=== PATIENT | female | born 2005 | race Caucasian/White ===

== ENCOUNTER 2025-03-25 16:53 | Emergency (ER) | payer OTHER ==
[2025-03-25 16:56] VITALS: BP 109/70; PULSE 74; RESP 16; O2SAT 98
--- NOTE | 2025-03-25 17:35 | Physician Documentation ---
History of Present Illness ~ General Chief Complaint: General Stated Complaint: NUMBNESS IN MY HAND AND TONGUE Time Seen by MD: 17:13 History of Present Illness Initial Comments This 20-year-old female with no significant medical history presents to the ED with a complaint of upper extremity distal tingling and numbness along with tongue numbness for about 2 hours after being in cold water today. States that her symptoms have fully resolved an adds that she has had a spell like this before States she does not smoke cigarettes but does take an IUD which excrete hormones Otherwise she is a low risk patient has no medical history that is significant for stroke however she does have a history of anxiety. States she does not think that is what was happening today. She says she felt, calm at the time. Review of Systems All Other Systems at this time: Reviewed and Negative ROS As stated above in the HPI, otherwise all systems are reviewed and negative. Physical Exam Physical Exam Vital Signs: Temperature: 98.2, Source: Temporal, Heart Rate: 74, Respiratory Rate: 16, BP: 109/70, Pulse Oximetry: 98 Oxygen Flow Rate: 0 Physical Exam General: Alert, no apparent distress. Respiratory: Lungs clear, no respiratory distress. Neurologic: Oriented x4. Psychiatric: Normal mood and affect. Skin: Normal color, warm and dry. No edema, no ecchymosis. Progress Results/Orders Results/Orders Vital Signs 03/25/25 16:56 Temp 98.2 Pulse 74 Resp 16 B/P (MAP) 109/70 Pulse Ox 98 O2 Flow Rate 0 Medical Decision Making Findings Explained that this patient does not present with any acute findings that would indicate further imaging to rule out CVA. Patient presents as a very healthy young woman without any focal deficits signs of focal deficits or any transient symptoms. Explained that this spell maybe directly correlated with the a panic attack or anxiety. She was visibly upset with the these findings. However I feel strongly there is a large psychiatric element to her presentation. Departure Disposition: 01 HOME / SELF CARE / HOMELESS Impression: Primary Impression: General medical exam Additional Impression: Panic attack Condition: Stable Discharge Instructions: Panic Attack, [id number] Additional Instructions: Discussed you do not present with any signs that you have her had a stroke. Recommend following up with the primary care doctor for further evaluation if you continue to have these spells of upper extremity numbness and tingling along with numbness in your tongue Referrals: NO PRIMARY CARE PROVIDER (PCP) Education Educated: Patient Signature Scribe Signature: d Attestation: The note accurately reflects work and decisions made by me.Tavo Fernández NP 03/25/25 17:30 TAVO NEAL NP Mar 25, 2025 17:35
[2025-03-25 17:50] VITALS: TEMP 98.2
== END 2025-03-25 17:51 | disposition home or self-care (01) ==
LOC: ER 16:54
DX: F41.0 Panic disorder [episodic paroxysmal anxiety] (principal); R20.0 Anesthesia of skin
CPT/HCPCS: 99281